=== PATIENT | female | born 1950 | race Caucasian/White ===

== ENCOUNTER 2018-12-15 17:29 | Emergency (ER) | payer OTHER, MEDICAID ==
[~2018-12-15] VITALS: Ht 162.6 cm; Wt 56.2 kg
[2018-12-15 17:41] VITALS: BP 91/67
--- NOTE | 2018-12-15 18:00 | NUR ---
PT AMBULATED TO BED 10
--- NOTE | 2018-12-15 18:10 | NUR ---
PT C/O FALL ON HER R SIDE ON HARDWO[place] FLOOR. PT STATES SHE WAS WALKING AND EATING AND SHE TRIPPED. PT DENIES HITTING HEAD, LOSS OF CONSCIOUSNESS, AAOX4, . NO VISIBLE BRUISING, EDEMA, ERYTHEMA, OR DEFORMITIES. PT REPORTS HEADACHE AT 5/10 ACHING. PT IS HARD OF HEARING, SPEECH IS DIFFICUT TO UNDERSTAND, PER SON THIS IS PT BASELINE. LUNGS CLEAR BL, BREATHING UNLABORED; HR EVEN AND REGULAR, BL PERIPHERAL PULSES PRESENT; BS ACTIVE X4, NO TENDERNESS TO PALPATION, NO HEPATOSPLENOMEGALLY PALPATED, RESONANT TO PERCUSSION; PT DENIES ANY FEVER, CP, SOB, OR COUGH AT THIS TIME; VSS; PATIENT POSITIONED FOR COMFORT; HOB ELEVATED; BEDRAILS UP X2; BED DOWN, PLACED ON FULL MONITOR.
[2018-12-15] MEDS ORDERED: KETOROLAC 30 MG/ML VIAL IM ONE (18:30)
[2018-12-15] MEDS ORDERED: DEXAMETHASONE 10 MG/ML VIAL IM ONE (18:30)
--- NOTE | 2018-12-15 19:03 | NUR ---
PT TO CT WITH TECH
--- NOTE | 2018-12-15 19:22 | NUR ---
PT RETURN FROM CT
[2018-12-15] MEDS ORDERED: NACL 0.9% 500 ML IV ONE (19:40)
--- NOTE | 2018-12-15 19:41 | NUR ---
PT BACK FROM CT. VSS. WILL CONTINUE TO MONITOR.
[2018-12-15 20:06] LABS: BASOPHILS # (AUTO) 0.1 K/uL (0.00-0.22); BASOPHILS % (AUTO) 1.5 % (0.0-2.0); EOSINOPHILS % (AUTO) 0.5 % (0.0-4.0); HEMOGLOBIN 12.5 g/dL (12.0-16.0); LYMPHOCYTES # (AUTO) 0.8 K/uL (2.5-16.5); LYMPHOCYTES % (AUTO) 14.7 % (20.5-51.1); MEAN CORPUSCULAR HEMOGLOBIN 29 pg (27-31); MEAN CORPUSCULAR HGB CONC 33 g/dL (33-37); MEAN CORPUSCULAR VOLUME 87.8 fL (80-94); MONOCYTES # (AUTO) 0.3 K/uL (0.8-1.0); MONOCYTES % (AUTO) 5.3 % (1.7-9.3); PLATELET COUNT (AUTO) 305 K/uL (140-450); RED BLOOD CELL COUNT(AUTO) 4.33 MIL/uL (4.20-5.40); RED CELL DISTRIBUTION WIDTH 13.1 % (11.6-13.7); WHITE BLOOD COUNT (AUTO) 5.1 K/uL (4.8-10.8)
[2018-12-15 20:19] LABS: PROTHROMBIN TIME 9.6 secs (10.8-13.4)
[2018-12-15 20:20] LABS: ALBUMIN 3.3 g/dL (3.4-5.0); ANION GAP 9.9 (8-16); CREATININE 0.7 mg/dL (0.6-1.3); TOTAL BILIRUBIN 0.6 mg/dL (0.0-1.0)
[2018-12-15 20:25] LABS: POTASSIUM 2.9 mmol/L (3.5-5.1)
--- NOTE | 2018-12-15 20:25 | NUR ---
Critical lab of Potassium 2.9. notified.
[2018-12-15] MEDS ORDERED: PROM118S4 PO (20:26)
[2018-12-15] MEDS ORDERED: CETI1SYR27 PO (20:26)
[2018-12-15] MEDS ORDERED: AMOX-999 PO (20:26)
[2018-12-15] MEDS ORDERED: KCL 20 MEQ/WATER INJ PREMIX 100 ML IV ONE (20:30)
--- NOTE | 2018-12-15 21:30 | NUR ---
Patient to be transferred to [facility]. Is being transferred due to [facility]. Receiving facility has accepting physician and available space. ER physician has signed transfer form. Patient or responsible alliance party has agreed to transfer and signed form. Patient belongings inventoried and will be sent with patient. Copy of nursing notes, lab reports, EKG, Physicians Orders and X-rays to be sent with patient. [facility] ambulance service at [facility] to transfer
[2018-12-15 21:37] VITALS: BP 137/77
--- NOTE | 2018-12-15 21:37 | NUR ---
PT TAKEN BY [facility] TRANSPORT TO [facility] ER
--- NOTE | 2018-12-17 07:57 | NUR ---
Late entry. Confirmed with RN that 0.9NS iv at 100ml/hr was dc'd at transfer at 2137. KCL IV was dc'e at 2137 as well.
== END 2018-12-15 21:37 | disposition short-term general hospital (02) ==
LOC: MED 17:29
DX: S06.6X0A Traumatic subarachnoid hemorrhage without loss of consciousness, initial encounter (principal); E87.6 Hypokalemia; M54.2 Cervicalgia; W01.190A Fall on same level from slipping, tripping and stumbling with subsequent striking against furniture, initial encounter; Y93.89 Activity, other specified; Y92.89 Other specified places as the place of occurrence of the external cause; Y99.8 Other external cause status
CPT/HCPCS: 36415; 70450; 72125; 80053; 85025; 85610; 85730; 96360; 96372; 99285; J1100; J1885; J3480